=== PATIENT | female | born 1965 | race Caucasian/White ===

== ENCOUNTER 2022-12-11 13:23 | Outpatient (CLI) | payer OTHER, SELFPAY | END 2022-12-11 13:24 | disposition home or self-care (01) | LOC: LONREF 13:24 | PROVIDERS: Visit Provider Nurse Practitioner Family | DX: E78.5 Hyperlipidemia, unspecified (principal) | CPT/HCPCS: 80061 ==

== ENCOUNTER 2023-05-07 12:52 | Outpatient (CLI) | payer OTHER, SELFPAY ==
--- NOTE | 2023-05-07 13:00 | CRLHL7_ITS ---
For Patients: As a result of the Century Cures Act, medical imaging exams and procedure reports are released immediately into your electronic medical record. You may view this report before your referring provider. If you have questions, please contact your health care provider. DXA BONE MINERAL DENSITY STUDY Reason for exam: Primary malignant neoplasm of female breast. Current height (in): 62. Weight (lb): 125. Menopause age: 51. Ethnicity: White. 1. Have you had a previous hip or vertebral fracture? No. 2. Have you had any fractures during your adult life which did not result from significant trauma (e.g., auto accident)? No. 3. Did either of your parents have a hip fracture? No. 4. Do you smoke? No. 5. Have you ever taken Glucocorticoids? No. 6. Do you have rheumatoid arthritis? No. 7. Do you have secondary osteoporosis? No. 8. Do you drink 3 or more alcoholic drinks per day? No. 9. Are you being treated for osteoporosis? No. 10. Have you ever taken any of the following medications: Actonel, Evista, Fosamax, Miacalcin, Reclast, Boniva, Forteo, HRT (i.e., estrogen/hormone therapy), Protelos, Prolia, Vitamin D, Calcium, other ??? please specify. ANSWER: Yes, vitamin D and calcium. 11. Do you have any of the following medical conditions: Anorexia or bulimia, asthma or emphysema, end stage renal disease, hyperparathyroidism, any seizure disorders, cancer, inflammatory bowel diseases, hysterectomy, other ??? please specify. ANSWER: Yes, cancer and hysterectomy. 12. What was your maximum height (inches)? 62. 13. Do you perform weight bearing exercise regularly? Yes. 14. Do you regularly consume dairy products? Yes. 15. Do you drink caffeinated beverages? Yes. If female: 16. At what age did your period start? 14. 17. Are you premenopausal? No. 18. How many full-term pregnancies have you had? 2. 19. Have you ever missed your period for more than 6 months in a row (not including or menopause)? No. TECHNIQUE: Bone mineral density study was performed using the [employer]. FINDINGS: The results of the study expressed as bone mineral density (BMD) are as follows: Lumbar spine L1 to L4: BMD: 0.920 g/cm2. T-score: -1.2. Z-score: -0.1 Neck Left: BMD: 0.734 g/cm2. T-score: -1.0. Z-score: 0.0 Right: BMD: 0.809 g/cm2. T-score: -0.4. Z-score: 0.7 Total Left: BMD: 0.952 g/cm2. T-score: 0.1. Z-score: 0.8 Right: BMD: 1.000 g/cm2. T-score: 0.5. Z-score: 1.2 IMPRESSION: Osteopenia. *Comparison exams done prior to 01/2020 were performed on different unit, [place]. COMPARISON: Compared with scan of 04/24/2021, the bone mineral density has decreased by 1.7 percent at the spine and decreased by 2.2 percent at the hip. FRAX 10-year Fracture Risk Major Osteoporotic Fracture: 5.6% Hip Fracture: 0.3% Reported Risk Factors: [place] () Neck BMD=0.734, BMI= 22.9 Bernardino Aguilera M.D. Diagnostic Radiologist [email or web address] rocha/Dictated by: Bernardino Aguilera MD @ 05/08/2023 12:22:00 PM (Electronically Signed)
== END 2023-05-07 12:53 | disposition home or self-care (01) ==
LOC: RAD 12:54
PROVIDERS: PCP Family Medicine; Visit Provider Internal Medicine Hematology & Oncology
DX: C50.111 Malignant neoplasm of central portion of right female breast (principal); M85.89 Other specified disorders of bone density and structure, multiple sites
CPT/HCPCS: 77080

== ENCOUNTER 2024-01-21 10:51 | Outpatient (CLI) | payer OTHER, SELFPAY | END 2024-01-21 10:52 | disposition home or self-care (01) | PROVIDERS: PCP Family Medicine; Visit Provider Nurse Practitioner Family | DX: E78.2 Mixed hyperlipidemia (principal); Z13.1 Encounter for screening for diabetes mellitus | CPT/HCPCS: 80061; 82947 ==

== ENCOUNTER 2025-04-19 12:50 | Outpatient (CLI) | payer OTHER, SELFPAY | END 2025-04-19 12:51 | disposition home or self-care (01) | PROVIDERS: PCP Nurse Practitioner Family; Visit Provider Nurse Practitioner Family | DX: E78.2 Mixed hyperlipidemia (principal); R03.0 Elevated blood-pressure reading, without diagnosis of hypertension | CPT/HCPCS: 80053; 80061 ==